=== PATIENT | male | born 1945 | race Caucasian/White ===

== ENCOUNTER → 2025-05-21 08:10 | Outpatient (REF) | payer MEDICARE, SELFPAY ==
[2025-05-21] VITALS (8 sets, daily range): BP systolic 68–166; BP diastolic 73–91
[2025-05-21 08:57] LABS: Hematocrit 43.0 % (39.0-52.0); Hemoglobin 14.3 g/dL (13.0-18.0); Mean Corp Hgb Conc. 33.3 g/dL (33.0-37.0); Mean Corpuscular Volume 96.0 fL (80.0-94.0); Nucleated Red Blood Cells % 0 % (-); Platelet Count 146 10^3/uL (130-400); Red Cell Dist. Width 12.6 % (11.5-14.5)
[2025-05-21 08:58] LABS: INR 1.51; PT 18.4 Sec (11.4-14.6)
[2025-05-21] MEDS: ATIVAN 0.5 MG PO (09:10)
== END ==
LOC: RADI 08:10
PROVIDERS: ATTENDING PHYSICIAN Internal Medicine Hematology & Oncology; REFERRING PHYSICIAN Physician Assistant
DX: D46.9 Myelodysplastic syndrome, unspecified (principal); D47.2 Monoclonal gammopathy; Z79.01 Long term (current) use of anticoagulants
CPT/HCPCS: 36415; 38222; 77012; 85025; 85610; 88305; 88311; 88312; 88313